=== PATIENT | female | born 1995 | race Two or more races ===

== ENCOUNTER 2023-01-25 15:32 | Emergency (ER) | payer OTHER ==
[~2023-01-25] VITALS: Ht 157.5 cm; Wt 54.4 kg
[2023-01-25] MEDS ORDERED: ALBUTEROL1.25 MG/3 IH (18:51)
[2023-01-25] MEDS ORDERED: LEVOFLOXACIN750 MG PO (18:51)
[2023-01-25] MEDS ORDERED: MEDROLPACK PO (18:51)
== END 2023-01-25 18:54 | disposition home or self-care (01) ==
LOC: ER 15:32
DX: J20.9 Acute bronchitis, unspecified (principal); R05.9 Cough, unspecified; Z20.822 Contact with and (suspected) exposure to COVID-19